=== PATIENT | female | born 1965 | race Caucasian/White ===

== ENCOUNTER 2016-11-05 09:30 | Outpatient (RCR) | payer BC ==
[2015-05-20 02:53] VITALS: BP 108/52
== END 2016-12-10 08:00 | disposition home or self-care (01) ==
LOC: PT 09:30
DX: M76.31 Iliotibial band syndrome, right leg (principal)

== ENCOUNTER → 2016-11-05 | Outpatient (CLI) | payer BC | LOC: MAMMO 08:39 | DX: Z12.31 Encounter for screening mammogram for malignant neoplasm of breast (principal); Z00.00 Encounter for general adult medical examination without abnormal findings | CPT/HCPCS: G0202 ==

== ENCOUNTER → 2017-04-28 | Outpatient (CLI) | payer OTHER ==
[2015-05-20 02:53] VITALS: BP 108/52
== END ==
LOC: RAD 12:19
DX: R14.0 Abdominal distension (gaseous) (principal); R10.817 Generalized abdominal tenderness

== ENCOUNTER → 2017-06-02 | Outpatient (CLI) | payer OTHER ==
[2015-05-20 02:53] VITALS: BP 108/52
== END ==
LOC: LAB 14:04
DX: N30.00 Acute cystitis without hematuria (principal)

== ENCOUNTER → 2017-06-08 | Outpatient (CLI) | payer OTHER ==
[2015-05-20 02:53] VITALS: BP 108/52
== END ==
LOC: LAB 11:07
DX: R30.0 Dysuria (principal)
CPT/HCPCS: Q0111

== ENCOUNTER → 2017-06-15 | Outpatient (CLI) | payer OTHER ==
[2015-05-20 02:53] VITALS: BP 108/52
== END ==
LOC: RAD 14:07
DX: N95.1 Menopausal and female climacteric states (principal); R10.2 Pelvic and perineal pain

== ENCOUNTER → 2017-09-10 | Outpatient (CLI) | payer OTHER ==
[2015-05-20 02:53] VITALS: BP 108/52
== END ==
LOC: LAB 18:46
DX: R30.0 Dysuria (principal)

== ENCOUNTER → 2017-09-29 | Outpatient (CLI) | payer OTHER ==
[2015-05-20 02:53] VITALS: BP 108/52
== END ==
LOC: RAD 08:36 → EDSTATUS 08:41
DX: R10.2 Pelvic and perineal pain (principal); R35.1 Nocturia

== ENCOUNTER 2017-12-10 19:26 | Emergency (ER) | payer OTHER ==
[~2017-12-10] VITALS: Ht 160 cm; Wt 72.7 kg
[2017-12-10] MEDS ORDERED: ESTRADIOL0.1 MG/24 TD (19:53)
[2017-12-10 20:32] LABS: EOS # 0.1 (0.04-0.40); EOS % 1.5 % (1.0-5.0); HEMOGLOBIN 14.1 g/dL (12.5-16.0); LYMPH# 2.2 (1.50-4.00); MEAN CELL VOLUME 94 fl (78-100); MEAN CORPUSCULAR HEMOGLOBIN 31 pg (27-31); MEAN CORPUSCULAR HGB CONC 33 g/dL (33-37); MEAN PLATELET VOLUME 9.7 fl (7.4-10.4); MONO # 0.7 (0.20-0.80); NEU # 4.8 (1.40-6.50); PLATELET COUNT 279 K/mm3 (130-400); RED BLOOD COUNT 4.58 M/mm3 (4.10-5.30); WHITE BLOOD COUNT 7.8 K/mm3 (4.8-10.8)
[2017-12-10 20:45] LABS: ALBUMIN 4.3 g/dL (3.5-5.0); BUN/CREATININE RATIO 15.5 (6.0-26.0); CALCIUM 9.4 mg/dL (8.4-10.2); POTASSIUM 3.7 mmol/L (3.6-5.0); TOTAL BILIRUBIN 0.3 mg/dL (0.2-1.3); TOTAL PROTEIN 7.3 g/dL (6.3-8.2)
[2017-12-10 20:48] LABS: D-DIMER 0.46 mg/L FEU (0.15-0.50)
[2017-12-10 20:51] LABS: CKMB ISOENZYME 0.7 ng/mL (0.6-3.5)
[2017-12-10 20:53] LABS: TROPONIN-I < 0.03 ng/mL (0.00-0.06)
[2017-12-10 21:33] VITALS: BP 109/58
== END 2017-12-10 21:33 | disposition home or self-care (01) ==
LOC: ED 19:26
PROVIDERS: Nurse Practitioner Primary Care
DX: R00.2 Palpitations (principal)

== ENCOUNTER → 2019-09-13 | Outpatient (CLI) | payer OTHER ==
[~2019-09-13] MED LIST: ESTRADIOL0.1 MG/24 TD
== END ==
LOC: RAD 17:03
DX: R05 Cough (principal); R09.89 Other specified symptoms and signs involving the circulatory and respiratory systems

== ENCOUNTER → 2020-09-09 | Outpatient (CLI) | payer OTHER ==
[2020-09-09 17:14] LABS: URINE APPEARANCE CLEAR; URINE BILIRUBIN NEGATIVE (NEGATIVE); URINE BLOOD NEGATIVE (NEGATIVE); URINE COLOR YELLOW; URINE GLUCOSE NEGATIVE (NEGATIVE); URINE KETONE NEGATIVE (NEGATIVE); URINE LEUKOCYTE ESTERASE NEGATIVE (NEGATIVE); URINE MUCUS PRESENT (NOT PRESENT); URINE NITRATE NEGATIVE (NEGATIVE); URINE PROTEIN(semi-quant) TRACE mg/dL (NEGATIVE); URINE UROBILINOGEN NORMAL (NORMAL)
== END ==
LOC: LAB 16:34
PROVIDERS: Family Medicine
DX: R30.0 Dysuria (principal)

== ENCOUNTER → 2020-11-29 | Outpatient (CLI) | payer OTHER ==
[2020-11-29 11:55] LABS: URINE APPEARANCE CLEAR; URINE BILIRUBIN NEGATIVE (NEGATIVE); URINE BLOOD NEGATIVE (NEGATIVE); URINE COLOR YELLOW; URINE GLUCOSE NEGATIVE (NEGATIVE); URINE KETONE NEGATIVE (NEGATIVE); URINE LEUKOCYTE ESTERASE NEGATIVE (NEGATIVE); URINE NITRATE NEGATIVE (NEGATIVE); URINE PROTEIN(semi-quant) TRACE mg/dL (NEGATIVE); URINE UROBILINOGEN NORMAL (NORMAL)
== END ==
LOC: LAB 11:37
PROVIDERS: Family Medicine
DX: R10.10 Upper abdominal pain, unspecified (principal)

== ENCOUNTER → 2021-07-21 | Outpatient (CLI) | payer BC ==
[2021-07-21 17:58] LABS: POTASSIUM 3.8 mmol/L (3.5-5.1)
[2021-07-21 17:59] LABS: CALCIUM 10.1 mg/dL (8.3-10.5)
[2021-07-21 19:04] LABS: URINE APPEARANCE CLEAR; URINE COLOR YELLOW
[2021-07-21 19:05] LABS: URINE BILIRUBIN NEGATIVE (NEGATIVE); URINE BLOOD NEGATIVE (NEGATIVE); URINE GLUCOSE NEGATIVE (NEGATIVE); URINE KETONE NEGATIVE (NEGATIVE); URINE LEUKOCYTE ESTERASE TRACE (NEGATIVE); URINE NITRATE NEGATIVE (NEGATIVE); URINE PROTEIN(semi-quant) NEGATIVE (NEGATIVE); URINE UROBILINOGEN NORMAL (NORMAL); URINE WBC 0-1 /hpf (0-3)
== END ==
LOC: LAB 17:26
PROVIDERS: Family Medicine
DX: R10.33 Periumbilical pain (principal); R30.0 Dysuria

== ENCOUNTER → 2024-02-28 | Day surgery (SDC) | payer BC ==
[~2024-02-28] MED LIST changes: +Lidocaine PF 2% (20 MG/ML) 5 ML VIAL ONE; +fentaNYL 100 MCG/2 ML VIAL ONE
== END | disposition home or self-care (01) ==
LOC: MSO 07:13
DX: K21.9 Gastro-esophageal reflux disease without esophagitis (principal); Z12.11 Encounter for screening for malignant neoplasm of colon; K57.30 Diverticulosis of large intestine without perforation or abscess without bleeding; E66.9 Obesity, unspecified
CPT/HCPCS: 00813; J2704; J3010; J7120

== ENCOUNTER → 2025-01-15 | Outpatient (CLI) | payer BC ==
[~2025-01-15] MED LIST changes: -Lidocaine PF 2% (20 MG/ML) 5 ML VIAL ONE; -fentaNYL 100 MCG/2 ML VIAL ONE
== END ==
LOC: RAD 13:46
DX: N13.2 Hydronephrosis with renal and ureteral calculous obstruction (principal); K57.30 Diverticulosis of large intestine without perforation or abscess without bleeding